=== PATIENT | female | born 2000 | race Caucasian/White ===

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

== ENCOUNTER 2018-07-25 05:17 | Outpatient (REF) | payer SELFPAY ==
[2018-07-25 06:29] LABS: Pregnancy, Serum, hCG Quali. NEGATIVE Negative (0-9 Nonpreg)
== END 2018-07-25 09:00 | disposition home or self-care (01) ==
LOC: ED 05:17
PROVIDERS: Emergency Medicine
DX: Z04.41 Encounter for examination and observation following alleged adult rape (principal)
CPT/HCPCS: 84703

== ENCOUNTER 2018-09-06 19:49 | Emergency (ER) | payer OTHER, SELFPAY ==
[2018-09-06 19:51] VITALS: BP 111/70; PULSE 106; RESP 16; TEMP 37.6; O2SAT 100; BMI 19.8
[2018-09-06 20:06] LABS: Bedside Glucose 135 mg/dL (70-110)
--- NOTE | 2018-09-06 20:29 | ED.RN ---
PT ARRIVES W/FRIENDS. FRIENDS STATE SHE HAS BEEN UNRESPONSIVE. PT NOT ANSWERING QUESTIONS. RESPONSIVE TO PAIN. BLE TO STAND, CLOSE MOUTH AROUND THERMOMETER AND FOLLOW SOME DIRECTIONS. WHILE ATTEMPTING IV ACCESS, ADVISED PT WE WOULD BE USING AMOONIA TO HELP W/ALERTNESS AND PT AWOKE AND BEGAN ASKING QUESTIONS. WHERE AM I? HOW DID I GET HERE? STATES SHE TAKES A DERIVATIVE OF RITALIN FOR ADHD, BUT DOES NOT KNOW THE NAME. STATES LAST YEAR SHE HAD 6TH NERVE PALSY THAT RESULTED IN PERIOD OF UNCONSCIOUSNESS. DENIES ALL OTHER HX AND MEDS. DENIES DRUG/ETOH USE.
--- NOTE | 2018-09-06 20:30 | ED.RN ---
PT GIVES PERMISSION FOR INFORMATION TO BE RELEASED TO : TONI CONNELLID: [phone] TRAVIS CONTRERAS [phone]
--- NOTE | 2018-09-06 20:31 | EKG12_ITS ---
Test Reason : Blood Pressure : / mmHG Vent. Rate : 094 BPM Atrial Rate : 094 BPM P-R Int : 146 ms QRS Dur : 062 ms QT Int : 350 ms P-R-T Axes : 050 072 049 degrees QTc Int : 437 ms Normal sinus rhythm with sinus arrhythmia Possible Left atrial enlargement Septal infarct , age undetermined Abnormal ECG Confirmed by CE HOFFMANN, CLIFFORD ([id number]), multimedia editor DEMETRICE ACEVEDO ([id number]) on 09/09/2018 3:31:22 PM Referred By: MARY ALICE Confirmed By:CLIFFORD ENCINAS MD
[2018-09-06 21:07] LABS: Absolute Lymphocyte Count 1.87 X10^3/ul (0.83-4.51); Basophil# 0.02 X10^3/uL; Basophil% 0.2 % (0-1); Eosinophil# 0.12 X10^3/uL; Hematocrit 37.7 % (37-47); Hemoglobin 12.1 g/dl (12.0-15.0); Lymphocyte # 1.87 X10^3/ul (4.0); Lymphocyte % 16.3 % (19-41); Mean Corp Hgb Conc 32.1 g/gl (32-36); Mean Corpuscular Hgb 29.5 pg (27.0-32.0); Mean Platelet Vol. 10.1 fl (6.2-12.0); Monocyte% 3.5 % (0-10); Neutrophil # 9.02 X10^3/uL (2.7-7.7); Neutrophil % 78.9 % (47-70); Platelet Count 357 K/mm3 (150-450); RBC Distribution Width CV 14.6 % (11.6-14.6); RBC Distribution Width SD 49.9 fl (35.1-43.9); White Blood Count 11.4 K/mm3 (4.4-11.0)
[2018-09-06 21:08] LABS: POSITIVE COUNT NO; POSITIVE DIFFERENTIAL NO; POSITIVE MORPHOLOGY NO
[2018-09-06 21:18] VITALS: BP 128/61
[2018-09-06 21:18] LABS: Alcohol, Blood (Medical)-Serum < 3.0 mg/dL
[2018-09-06 21:24] LABS: AST(SGOT) 17 U/L (15-37); Alanine Aminotransfer ALT/SGPT 24 U/L (13-56); Albumin, Serum 4.3 g/dL (3.2-5.0); Alkaline Phosphatase 83 U/L (45-117); Anion Gap 8 (5-15); BUN 13 mg/dL (7-18); BUN/Creat Ratio 16.5 RATIO (10-20); Calcium,Total 9.1 mg/dL (8.5-10.1); Chloride 106 mmol/L (98-107); Creatinine, Serum 0.79 mg/dL (0.55-1.02); EST Glomerular Filtration Rate 99 mL/min (>60); Est Glom Filt Rate - Afr Amer 120 mL/min (>60); Estimated Creatinine Clearance 106.85 ml/min; Globulin 4.3 g/dL (2.2-4.2); Glucose 105 mg/dL (74-106); Lipase 117 U/L (73-393); Potassium 3.8 mmol/L (3.5-5.1); Protein, Total 8.6 g/dL (6.4-8.2); Sodium Level 139 mmol/L (136-145)
[2018-09-06 21:46] LABS: Pregnancy, Serum, hCG Quali. NEGATIVE Negative (0-9 Nonpreg)
[2018-09-06 22:08] LABS: Bacteria 0 SEEN /hpf (None Seen); Mucous, Urine 0 SEEN /hpf (<or=2+); Red Blood Cells-Urine 0 SEEN /hpf (0-5); White Blood Cells 0 SEEN /hpf (0-5)
[2018-09-06 22:12] LABS: Color, Urine Yellow (Yellow); Glucose, Dipstick Normal (Normal); Ketone-Dipstick Negative (Negative); Leukocyte Esterase-Dipstick Negative /ul (Negative); Nitrite-Dipstick Negative (Negative); Occult Blood-Urine Negative /ul (Negative); Protein-Dipstick 15 mg/dl (Negative); Specific Gravity, Urine 1.015 (1.002-1.030); Urine Bilirubin Dipstick Negative (Negative); Urine Clarity Clear (Clear); Urine Urobilinogen Normal (Normal); Urine pH 6.5 (5.0 - 8.0)
--- NOTE | 2018-09-06 22:17 | NURSING ---
[facility] IN TO SEE PT COW NURSE CALLS TO CHECK IN ON PT.
[2018-09-06 22:23] LABS: Amphetamine Urine VISTA NEGATIVE (<1000 ng/mL); Barbiturate Urine VISTA NEGATIVE (< 200 ng/mL); Benzodiazepine Urine VISTA NEGATIVE (< 200 ng/mL); Cocaine Urine VISTA NEGATIVE (< 300 ng/mL); Ecstacy Urine VISTA NEGATIVE (< 500 ng/mL); Methadone Urine VISTA NEGATIVE (< 300 ng/mL); PCP Urine VISTA NEGATIVE (< 25 ng/mL); THC Urine VISTA NEGATIVE (< 50 ng/mL); Vista UDS pH Range 6
[2018-09-06 22:24] LABS: Squamous Epithelial Cells - UA 0-5 SEEN /hpf (5-10)
[2018-09-06 22:34] VITALS: BP 149/86; PULSE 84; RESP 18; O2SAT 98
--- NOTE | 2018-09-06 23:09 | ED.DCSUM_ITS ---
- ER Visit Summary Date of Service: 09/06/18 Chief Complaint: Unresponsive History of Present Illness: The patient is a 17 F who is brought in by friends following unresponsive episode. Patient's eyes are open she not initially is speaking. She was however moving at times and in fact at one point assisted in lifting her buttock off the bed to get her situated. Once she was situated the patient began speaking with nursing. When I speak to her in private she tells me she is under a great deal of stress. She states that her stress is related to school as well as an incident that the [employer] is investigating involving somebody else. She states the last thing she remembers was taking part in a [place] event and going back to her dorm room. She denies any pain. She notes she is on an ADD medication that is generic for Ritalin. She denies any suicidal or homicidal ideation Physical Examination: Afebrile vital signs are stable Gen: Well-nourished well-developed Head: Normocephalic atraumatic Eyes: Perrl EOMI ENT: TMs clear no rhinorrhea moist mucous membranes Neck: Supple no lymphadenopathy no JVD nontender CVS: Regular rate rhythm no murmurs normal S1-S2 Respiratory: No distress clear to auscultation bilaterally chest nontender Abdomen: Soft nontender nondistended normal bowel sounds no masses Back: Nontender Extremity: Nontender no edema Skin: Normal color no rash Neuro: alert orientated ?3 CN II-XII intact normal strength sensation reflexes gait cerebellar Psych: Flat affect Test Results: EKG sinus with a rate of 94. Basic labs showed a white count 11.4. Tox negative. Troponin negative. Serum test negative. Emergency Department Course and Treatment: Patient remained neurologically intact here. I had crisis speak with her and she wishes to continue seeing a counselor at the [facility] [employer] [facility] which she has recently started. I think the patient is under a great deal of stress is most likely having a conversion disorder. Return if worsening or concerns. I also provided her with medical follow-up. Impression: 1. Conversion disorder This note was generated with [employer] software. It may contain incorrect words, spelling, and punctuation that were not noted in review of the chart prior to signing ED Disposition - Plan for ED Patient: Disposition: Home or Assisted Living Chief Complaint: Unresponsive Instructions: ED Conversion Disdr Conversion Reac Referrals: Davonte Hamlin MD [STAFF PHYSICIAN] - As soon as possible Additional Instructions: You need to see your counselor soon as possible.
[2018-09-06 23:17] VITALS: BP 136/71; PULSE 71; RESP 18; O2SAT 98
== END 2018-09-06 23:32 | disposition home or self-care (01) ==
PROVIDERS: Emergency Provider Emergency Medicine
DX: F44.9 Dissociative and conversion disorder, unspecified (principal); F98.8 Other specified behavioral and emotional disorders with onset usually occurring in childhood and adolescence; Z79.899 Other long term (current) drug therapy
CPT/HCPCS: 80053; 80307; 80320; 81001; 82962; 83690; 84484; 84703; 85025; 93005; 99283; A4216; G0480